=== PATIENT | female | born 1940 | race Caucasian/White ===

== ENCOUNTER → 2017-04-16 | Outpatient (CLI) | payer MEDICARE | END | disposition home or self-care (01) | LOC: CFH 11:01 | PROVIDERS: ATTEND Internal Medicine | DX: Z13.820 Encounter for screening for osteoporosis (principal); M85.88 Other specified disorders of bone density and structure, other site; N95.9 Unspecified menopausal and perimenopausal disorder | CPT/HCPCS: 77080 ==

== ENCOUNTER → 2017-11-21 | Outpatient (CLI) | payer MEDICARE | END | disposition home or self-care (01) | LOC: CFH 12:01 | PROVIDERS: ATTEND Internal Medicine | DX: Z12.31 Encounter for screening mammogram for malignant neoplasm of breast (principal); R09.89 Other specified symptoms and signs involving the circulatory and respiratory systems; N63.20 Unspecified lump in the left breast, unspecified quadrant | CPT/HCPCS: 93880; G0202 ==

== ENCOUNTER → 2018-10-09 | Outpatient (CLI) | payer MEDICARE | END | disposition home or self-care (01) | LOC: CFH 08:47 | PROVIDERS: ATTEND Internal Medicine | DX: J98.4 Other disorders of lung (principal); J84.10 Pulmonary fibrosis, unspecified; J98.11 Atelectasis; J44.9 Chronic obstructive pulmonary disease, unspecified | CPT/HCPCS: 71250 ==

== ENCOUNTER 2019-04-26 09:57 | Outpatient (CLI) | payer MEDICARE | END 2019-04-26 23:59 | disposition home or self-care (01) | LOC: CFH 09:57 | PROVIDERS: ATTEND Nurse Practitioner | DX: J47.9 Bronchiectasis, uncomplicated (principal) | CPT/HCPCS: 71250 ==

== ENCOUNTER → 2019-09-23 | Outpatient (CLI) | payer MEDICARE ==
[~2019-09-23] MED LIST: REGADENOSON 0.4 MG/5 ML SYRINGE ONE
== END | disposition home or self-care (01) ==
LOC: CFH 08:31
PROVIDERS: ATTEND Internal Medicine Cardiovascular Disease
DX: I36.1 Nonrheumatic tricuspid (valve) insufficiency (principal); R07.89 Other chest pain
CPT/HCPCS: 78452; 93017; A9502; J2785

== ENCOUNTER 2020-06-14 07:04 | Inpatient (IN) | payer MEDICARE ==
[~2020-06-14] VITALS: Ht 165.1 cm; Wt 95.1 kg
[2020-06-14] MEDS ORDERED: ASPIRIN 81 MG TABLET CHEW PO ONE (07:30)
[2020-06-14] MEDS ORDERED: ASPIRIN 81 MG TABLET CHEW ONE (07:37)
[2020-06-14 07:40] LABS: BASOPHILS # (AUTO) 0.01 x10^3/uL (0-0.1); BASOPHILS % (AUTO) 0 % (0-1); EOSINOPHILS # (AUTO) 0.33 x10^3/uL (0-0.4); EOSINOPHILS % (AUTO) 3 % (1-7); LYMPHOCYTES # (AUTO) 2.82 x10^3/uL (1-3.4); LYMPHOCYTES % (AUTO) 27 % (22-44); MD NO; MEAN CORPUSCULAR HEMOGLOBIN 31.8 pg (27.0-34.8); MEAN CORPUSCULAR HGB CONC 32.8 g/dL (32.4-35.8); MEAN PLATELET VOLUME 7.7 fL (7.4-10.4); MONOCYTES # (AUTO) 0.49 x10^3/uL (0.2-0.8); MONOCYTES % (AUTO) 5 % (2-9); NEUTROPHILS # (AUTO) 6.63 x10^3/uL (1.8-6.8); NEUTROPHILS % (AUTO) 65 % (42-75); PLATELET COUNT 370 x10^3/uL (130-400); RED BLOOD COUNT 3.76 x10^6/uL (3.82-5.3); RED CELL DISTRIBUTION WIDTH 12.3 % (9.6-15.2)
[2020-06-14 07:55] LABS: ALANINE AMINOTRANSFERASE 27 U/L (12-78); ALBUMIN 3.8 g/dL (3.4-5.0); ANION GAP 6 mmol/L (5-15); CALCIUM 8.9 mg/dL (8.5-10.1); CHLORIDE 98 mmol/L (98-107); CREATININE 0.78 mg/dL (0.55-1.02)
[2020-06-14 08:00] LABS: ALKALINE PHOSPHATASE 69 U/L (45-117); BILIRUBIN,TOTAL 0.5 mg/dL (0.2-1.0); TOTAL PROTEIN 7.9 g/dL (6.4-8.2); TROPONIN I < 0.015 ng/mL (0.000-0.045)
[2020-06-14] MEDS ORDERED: NITROGLYCERIN OINT 2%, 1GM TP ONE ×2 (08:13→08:30)
[2020-06-14] MEDS ORDERED: OMEP-110 PO (08:27)
[2020-06-14] MEDS ORDERED: LEVO50TA5 PO (08:27)
[2020-06-14] MEDS ORDERED: ASPI-614 PO (08:27)
[2020-06-14] MEDS ORDERED: PSYL1PAC9 PO (08:27)
[2020-06-14] MEDS ORDERED: ALBU8.5H8 INH (08:27)
[2020-06-14] MEDS ORDERED: SIMV10TA18 PO (08:27)
[2020-06-14] MEDS ORDERED: ACYC-114 PO (08:27)
[2020-06-14] MEDS ORDERED: FLUT12HF3 IH (08:27)
[2020-06-14] MEDS ORDERED: TIOT18CA INH (08:27)
[2020-06-14] MEDS ORDERED: TRIA1TAB2 PO (08:27)
[2020-06-14] MEDS ORDERED: OMAL150S INJ (08:27)
[2020-06-14] MEDS ORDERED: ALBU18HF INH (08:27)
[2020-06-14] MEDS ORDERED: LOSA100T14 PO (08:27)
[2020-06-14] MEDS ORDERED: MONT10TA11 PO (08:27)
--- NOTE | 2020-06-14 08:41 | NUR ---
Pt transported on rlucas to CT at this time.
--- NOTE | 2020-06-14 08:43 | NUR ---
LATE NOTE ENTRY DUE TO PT CARE. Pt presents to ED with c/o substernal chest tightness starting suddenly at approximately 0630 today while patient was making her bed. Pt states pain does not radiate and has stayed constant. Pt rates worst discomfort with chest tightness of 6/10. PIV established. Medications provided per EMAR. S/P medical superintendent substernal chest tightness rated 2/10 by patient. Patient connected to fixed income director, NIBP cuff, and continous pulse ox. Bedrails up x 2 and call light within reach. NADN. No other needs expressed. Pt has pmh of Asthma and COPD non-smoker and wears 4L oxygen via NC continously.
--- NOTE | 2020-06-14 08:54 | NUR ---
Provided report to JOSELITO Luis. All questions answered. Pt remains away at CT at this time.
[2020-06-14] MEDS ORDERED: AZITHROMYCIN 500 MG in SODIUM CHLORIDE 0.9% 250 ML IV ONE (11:00)
[2020-06-14] MEDS ORDERED: CEFTRIAXONE PMX 1GM/50ML 50 ML ONE (11:56)
[2020-06-14 11:57] LABS: C-REACTIVE PROTEIN, QUANT 0.13 mg/dL (0.02-0.49)
[2020-06-14] MEDS ORDERED: CEFTRIAXONE PMX 1GM/50ML 50 ML IVPB ONE (12:00)
--- NOTE | 2020-06-14 12:50 | NUR ---
BREAK RN. REPORT GIVEN TO IVETTE RN, PT OK TO TRANSFER TO FLOOR.
[2020-06-14 13:31] VITALS: BP 159/64
[2020-06-14] MEDS ORDERED: POLYETHYLENE GLYCOL 17 GM PACKET PO PRN (14:30)
[2020-06-14] MEDS ORDERED: DOCUSATE 100 MG CAPSULE PO PRN (14:30)
[2020-06-14] MEDS ORDERED: ALBUTEROL HFA 90 MCG/SPRAY INH PRN (14:30)
[2020-06-14] MEDS ORDERED: BISACODYL 10 MG SUPP PR PRN (14:30)
[2020-06-14] MEDS ORDERED: ONDANSETRON 2MG/ML, 2ML IVPush PRN (14:30)
[2020-06-14] MEDS ORDERED: ACETAMINOPHEN 325 MG TABLET PO PRN (14:30)
[2020-06-14] MEDS: CEFTRIAXONE PMX 1GM/50ML 50 ML IV SCH (15:00)
[2020-06-14] MEDS: [UNRECOGNIZED DRUG - REMARK] MC SCH ×2 (15:00→23:00)
[2020-06-14 15:44] LABS: TROPONIN I < 0.015 ng/mL (0.000-0.045)
[2020-06-14] MEDS ORDERED: AZITHROMYCIN 500 MG in SODIUM CHLORIDE 0.9% 250 ML IV SCH (16:00)
[2020-06-14] MEDS: HEPARIN 5,000 UNITS/ML, 1ML SQ SCH (17:00)
[2020-06-14 19:57] VITALS: BP 134/57
[2020-06-14] MEDS: FLUTICASONE/VILANTEROL 200-25MCG/INH INH SCH (21:00)
[2020-06-14] MEDS ORDERED: SIMVASTATIN 10 MG TABLET PO SCH (21:00)
[2020-06-14] MEDS ORDERED: LOSARTAN 100 MG TAB PO SCH (21:00)
[2020-06-14 21:24] LABS: TROPONIN I < 0.015 ng/mL (0.000-0.045)
[2020-06-14] MEDS ORDERED: LOSARTAN 50MG TABLET ONE (21:47)
[2020-06-15 01:02] VITALS: BP 135/55
[2020-06-15] MEDS: HEPARIN 5,000 UNITS/ML, 1ML SQ SCH ×2 (02:26→09:46)
[2020-06-15] MEDS ORDERED: OMEPRAZOLE 20 MG CAPSULE.DR PO SCH (06:00)
[2020-06-15] MEDS ORDERED: LEVOTHYROXINE 50 MCG TABLET PO SCH (06:00)
[2020-06-15 06:22] LABS: BASOPHILS # (AUTO) 0.03 x10^3/uL (0-0.1); BASOPHILS % (AUTO) 0 % (0-1); EOSINOPHILS # (AUTO) 0.27 x10^3/uL (0-0.4); EOSINOPHILS % (AUTO) 3 % (1-7); LYMPHOCYTES % (AUTO) 26 % (22-44); MD NO; MEAN CORPUSCULAR HEMOGLOBIN 31.7 pg (27.0-34.8); MEAN CORPUSCULAR HGB CONC 32.7 g/dL (32.4-35.8); MEAN CORPUSCULAR VOLUME 96.9 fL (80-100); MEAN PLATELET VOLUME 7.8 fL (7.4-10.4); MONOCYTES # (AUTO) 0.52 x10^3/uL (0.2-0.8); MONOCYTES % (AUTO) 6 % (2-9); NEUTROPHILS # (AUTO) 6.17 x10^3/uL (1.8-6.8); NEUTROPHILS % (AUTO) 66 % (42-75); PLATELET COUNT 323 x10^3/uL (130-400); RED BLOOD COUNT 3.45 x10^6/uL (3.82-5.3); RED CELL DISTRIBUTION WIDTH 12.6 % (9.6-15.2)
[2020-06-15 06:29] LABS: ALANINE AMINOTRANSFERASE 23 U/L (12-78); ALBUMIN 3.5 g/dL (3.4-5.0); ANION GAP 4 mmol/L (5-15); CALCIUM 8.8 mg/dL (8.5-10.1); CHLORIDE 97 mmol/L (98-107); CREATININE 0.82 mg/dL (0.55-1.02)
[2020-06-15 06:40] LABS: ALKALINE PHOSPHATASE 63 U/L (45-117); BILIRUBIN,TOTAL 0.5 mg/dL (0.2-1.0); TOTAL PROTEIN 7.1 g/dL (6.4-8.2)
[2020-06-15] MEDS: [UNRECOGNIZED DRUG - REMARK] MC SCH ×2 (07:00→15:00)
[2020-06-15 07:04] VITALS: BP 136/48
[2020-06-15] MEDS: FLUTICASONE/VILANTEROL 200-25MCG/INH INH SCH (09:00)
[2020-06-15] MEDS ORDERED: MONTELUKAST 10 MG TABLET PO SCH (09:00)
[2020-06-15] MEDS ORDERED: ASPIRIN 81 MG TABLET CHEW PO SCH (09:00)
[2020-06-15] MEDS ORDERED: TRIAMTERENE-HCTZ 37.5/25 MG TABLET PO SCH (09:00)
[2020-06-15] MEDS ORDERED: PSYLLIUM PACKET PO SCH (09:00)
[2020-06-15] MEDS ORDERED: LOSARTAN 100 MG TAB PO SCH (09:00)
[2020-06-15] MEDS ORDERED: TIOTROPIUM BROMIDE 18 MCG/INH INH SCH (09:00)
[2020-06-15] MEDS ORDERED: AZIT250T PO (11:35)
[2020-06-15] MEDS ORDERED: CEFD300C37 PO (11:35)
[2020-06-15] MEDS: CEFTRIAXONE PMX 1GM/50ML 50 ML IV SCH (15:00)
== END 2020-06-15 16:15 | disposition home or self-care (01) | DRG 194 ==
LOC: ED 07:37 → EDIP 08:08 → 5SO 08:35 → EDIP 08:36 → 5SO 08:52 → 4NW 13:12
PROVIDERS: ADMIT Hospitalist; ATTEND Family Medicine
DX: J18.9 Pneumonia, unspecified organism (principal); J96.11 Chronic respiratory failure with hypoxia; E87.1 Hypo-osmolality and hyponatremia; J44.0 Chronic obstructive pulmonary disease with (acute) lower respiratory infection; I27.20 Pulmonary hypertension, unspecified; J44.9 Chronic obstructive pulmonary disease, unspecified; E78.5 Hyperlipidemia, unspecified; Z20.828 Contact with and (suspected) exposure to other viral communicable diseases; D72.829 Elevated white blood cell count, unspecified; Z90.49 Acquired absence of other specified parts of digestive tract; Z88.6 Allergy status to analgesic agent; Z99.81 Dependence on supplemental oxygen; Z85.828 Personal history of other malignant neoplasm of skin; Z82.49 Family history of ischemic heart disease and other diseases of the circulatory system
CPT/HCPCS: 36415; 71045; 71250; 80053; 82728; 83605; 83615; 83735; 84100; 84145; 84443; 84484; 85025; 86140; 87040; 87635; 93005; 93306; G0378; J0456; J0696; J1644; J7050

== ENCOUNTER → 2020-12-08 | Outpatient (CLI) | payer MEDICARE ==
[~2020-12-08] MED LIST changes: +ACYC-114 PO; +ALBU18HF INH; +ALBU8.5H8 INH; +ASPI-614 PO; +AZIT250T PO; +CEFD300C37 PO; +FLUT12HF3 IH; +LEVO50TA5 PO; +LOSA100T14 PO; +MONT10TA96 PO; +OMAL150S INJ; +OMEP-110 PO; +PSYL1PAC9 PO; -REGADENOSON 0.4 MG/5 ML SYRINGE ONE; +SIMV10TA18 PO; +TIOT18CA INH; +TRIA1TAB2 PO
== END | disposition home or self-care (01) ==
LOC: CFH 10:30
PROVIDERS: ATTEND Registered Nurse
DX: J47.9 Bronchiectasis, uncomplicated (principal); J84.10 Pulmonary fibrosis, unspecified; R91.1 Solitary pulmonary nodule; J96.11 Chronic respiratory failure with hypoxia; K76.89 Other specified diseases of liver; M51.34 Other intervertebral disc degeneration, thoracic region
CPT/HCPCS: 71250

== ENCOUNTER 2021-08-01 08:22 | Emergency (ER) | payer MEDICARE ==
[~2021-08-01] VITALS: Ht 165.1 cm; Wt 95.3 kg
[~2021-08-01 08:22] MED LIST changes: -ACYC-114 PO; +ACYC-40 PO; +MONT10TA17 PO; -MONT10TA96 PO
--- NOTE | 2021-08-01 09:52 | NUR ---
PAINTER: PT TO ROOM FROM LOBBY
--- NOTE | 2021-08-01 10:11 | NUR ---
URINE COLLECTED AND SENT TO LAB
[2021-08-01] MEDS ORDERED: SODIUM CHLORIDE FLUSH 10ML SYR IVF ONE (10:30)
--- NOTE | 2021-08-01 10:40 | NUR ---
PT C/O LEFT ABD AND FLANK PAIN THAT STARTED FRIDAY. NO TRAUMA. PT DENIES N/V, DIARRHEA, DYSURIA, OR CP. PT STATES THE PAIN WORSENS WITH MOVEMENT, 06/02. PT ON 3.5 LPM O2 BASELINE DUE TO COPD. PT CONNECTED TO MONITORING EQUIPMENT. RAILS UP. CALL LIGHT WITHIN REACH. PERSONAL BELONGINGS AT HAND.
[2021-08-01 10:46] LABS: MICROSCOPIC AUTO
[2021-08-01 11:14] LABS: BASOPHILS % (AUTO) 0 % (0-1); EOSINOPHILS % (AUTO) 2 % (1-7); LYMPHOCYTES % (AUTO) 16 % (22-44); MEAN CORPUSCULAR HEMOGLOBIN 32.3 pg (27.0-34.8); MEAN PLATELET VOLUME 7.6 fL (7.4-10.4); MONOCYTES % (AUTO) 6 % (2-9); NEUTROPHILS % (AUTO) 75 % (42-75); PLATELET COUNT 277 x10^3/uL (130-400); RED BLOOD COUNT 3.67 x10^6/uL (3.82-5.3); RED CELL DISTRIBUTION WIDTH 12.4 % (9.6-15.2)
[2021-08-01 11:23] LABS: ALANINE AMINOTRANSFERASE 23 U/L (12-78); ALBUMIN 3.4 g/dL (3.4-5.0); ANION GAP 7 mmol/L (5-15); CHLORIDE 98 mmol/L (98-107); CREATININE 0.78 mg/dL (0.55-1.02)
[2021-08-01 11:26] LABS: ALKALINE PHOSPHATASE 69 U/L (45-117); BILIRUBIN,TOTAL 0.4 mg/dL (0.2-1.0); TOTAL PROTEIN 7.5 g/dL (6.4-8.2)
--- NOTE | 2021-08-01 13:17 | NUR ---
TASK RN NOTE: PT SITTING UP IN BED WATCHING TELEVISION. NAD NOTED AT THIS TIME. RESPIRATIONS EVEN AND UNLABORED ON NC. AWAITING CT READ. SIDE RAILS UP, CALL LIGHT IN REACH.
[2021-08-01] MEDS ORDERED: OMNIPAQUE 350 MG/ML, 100ML BOTTLE ONE (13:19)
[2021-08-01 15:15] VITALS: BP 142/84
--- NOTE | 2021-08-01 15:23 | NUR ---
PT REC'VD DISCHARGE INSTRUCTIONS AND EDUCATION. PT HAD NO FURTHER QUESTIONS. PT AMBULATED TO DC AREA ON O2. PT'S SON WILL COME TO AV SPECIALIST PATIENT AND BRING PT'S O2.
== END 2021-08-01 15:32 | disposition home or self-care (01) ==
LOC: ED 10:57
DX: R10.12 Left upper quadrant pain (principal); R10.13 Epigastric pain; J44.9 Chronic obstructive pulmonary disease, unspecified; Z90.49 Acquired absence of other specified parts of digestive tract
CPT/HCPCS: 36415; 71045; 71260; 74177; 80053; 81001; 83690; 85025; 87086; 99285; Q9967